=== PATIENT | male | born 1985 | race Caucasian/White ===

== ENCOUNTER 2022-10-08 08:01 | Outpatient (CLI) | payer BC, SELFPAY ==
--- NOTE | ~2022-10-08 | MR_ITS ---
EXAMINATION: MR lumbar spine wo con DATE: 10/08/2022 08:24 INDICATION: Low back pain TECHNIQUE: Magnetic resonance imaging (MRI) of the lumbar spine was performed without intravenous con trast. Sequences included sagittal T2-weighted FSE, sagittal T2-weighted FS FSE, sagittal T1-weighted FSE, and axial T2-weighted FSE. COMPARISON: None FINDINGS: 1 mm retrolisthesis L5 on S1. Alignment is otherwise normal. Vertebral body heights are normal. Norm al marrow signal. Mild disc height loss at T11-T12 and with associated annular fissures at L3-L4, L4- L5 and L5-S1. The conus medullaris terminates at L2. There is normal signal in the caudal spinal cord . Paravertebral soft tissues are unremarkable. The following disc levels are specifically discussed: T12-L1: The disc does not extend beyond the endplate margin. There is mild bilateral facet joint oste oarthritis. There is no neural foraminal stenosis. There is no central canal stenosis. L1-L2: Disc is mildly bulging. There is mild bilateral facet joint osteoarthritis. There is no neural foraminal stenosis. There is minimal central canal stenosis. L2-L3: The disc does not extend beyond the endplate margin. There is minimal bilateral facet joint os teoarthritis. There is no neural foraminal stenosis. There is no central canal stenosis. L3-L4: Disc is bulging with annular fissure and small central disc extrusion with disc material exten ding up to 4 mm caudal to the level of the superior endplate of L4. There is minimal bilateral facet joint osteoarthritis. There is mild to moderate bilateral neural foraminal stenosis. There is mild ce ntral canal stenosis. L4-L5: Disc is bulging with similar annular fissure and small central disc extrusion with disc materi al extending up to 4 mm caudal to the level of the superior endplate of L5. There is mild bilateral f acet joint osteoarthritis. There is mild to moderate bilateral neural foraminal stenosis. There is mi ld central canal stenosis along with mild narrowing of the left and right lateral recesses. L5-S1: Annular fissure and small left paracentral disc extrusion with disc extrusion extending 2 mm c audal to the level of the superior endplate of S1. There is mild bilateral facet joint osteoarthritis . There is mild right and mild to moderate left neural foraminal stenosis. There is no central canal stenosis. There is mild narrowing of the left lateral recess. IMPRESSION: 1. Mild lumbar spondylosis. Reviewed, dictated and finalized at location A. [employer] ORTHOTIC FITTER IMPRESSION: 1. Mild lumbar spondylosis.
== END 2022-10-08 08:02 ==
DX: M47.26 Other spondylosis with radiculopathy, lumbar region (principal)
CPT/HCPCS: 72148

== ENCOUNTER 2024-02-07 14:07 | Outpatient (CLI) | payer BC, SELFPAY ==
--- NOTE | ~2024-02-07 | MR_ITS ---
EXAMINATION: MR shoulder RT wo/w con DATE: 02/07/2024 15:08 INDICATION: Right shoulder pain. TECHNIQUE: Magnetic resonance imaging (MRI) of the right shoulder was performed without and with 20 m L MultiHance intravenous contrast. COMPARISON: None. FINDINGS: Coracoacromial arch: The acromion undersurface is curved in morphology (type II). There is mild acromioclavicular joint os teoarthritis. There is mild subacromial/subdeltoid bursitis. Rotator cuff: There is mild supraspinatus tendinopathy and mild infraspinatus tendinopathy. Teres minor tendon is n ormal. There is severe subscapularis tendinopathy. There is a full-thickness tear of superior subscap ularis tendon at its distal attachment measuring 2 mm proximal to distal. There is no asymmetric fatt y atrophy of the rotator cuff muscle bellies. Biceps tendon and glenoid labrum: Biceps tendon is in bicipital groove. Intra-articular biceps tendon is normal. The glenoid labrum is normal. Fluid: There is a small glenohumeral joint effusion. Bones/cartilage: Glenoid cartilage is normal. Humeral head cartilage is normal. IMPRESSION: 1. Full-thickness tear of subscapularis tendon superiorly at its distal attachment. 2. Mild acromioclavicular joint osteoarthritis. 3. Small glenohumeral joint effusion. 4. Mild subacromial/subdeltoid bursitis. Reviewed, dictated and finalized at location A. IMPRESSION: 1. Full-thickness tear of subscapularis tendon superiorly at its distal attachm ent. 2. Mild acromioclavicular joint osteoarthritis. 3. Small glenohumeral joint effusion. 4. Mild subacromial/subdeltoid bursitis.
== END 2024-02-07 14:08 ==
LOC: MICIMG 14:09
PROVIDERS: PCP Family Medicine
DX: M19.011 Primary osteoarthritis, right shoulder (principal); M25.411 Effusion, right shoulder; M75.51 Bursitis of right shoulder
CPT/HCPCS: 73223; A9577

== ENCOUNTER 2024-08-02 08:26 | Emergency (ER) | payer BC, SELFPAY ==
[2024-08-02 08:27] VITALS: BP 156/76; PULSE 91; RESP 16; TEMP 36.8; O2SAT 98
== END 2024-08-02 12:19 | disposition left against medical advice (07) ==
LOC: ANHED 12:01
PROVIDERS: PCP Family Medicine
DX: R09.89 Other specified symptoms and signs involving the circulatory and respiratory systems (principal)
CPT/HCPCS: 99199

== ENCOUNTER 2025-04-09 14:00 | Emergency (ER) | payer BC, SELFPAY ==
--- NOTE | ~2025-04-09 | CT_ITS ---
EXAMINATION: CT abdomen pelvis w con DATE: 04/09/2025 16:12 INDICATION: RUQ pain TECHNIQUE: Computed tomography (CT) of the abdomen and pelvis was performed with 100 mL Omnipaque-350 intravenous contrast. Automated exposure control and iterative reconstruction technique were employe d. The dose-length product was 831.75 mGy-cm. COMPARISON: Ultrasound abdomen, same date. FINDINGS: Lower thorax: Unremarkable Liver: Enlarged. Biliary/Gallbladder: Gallbladder is normal. No bile duct dilation. Pancreas: No mass or duct dilation. Spleen: Normal. Adrenals:No mass. Kidneys: Simple exophytic left renal cyst. 1.6 cm indeterminate density right upper pole lesion. No o bstructing calcification or hydronephrosis. GI tract: Mild distal esophageal and antral wall edema. No small or large bowel dilation. Normal appe ndix. Mesentery/Peritoneum: No ascites, mass, or free air. Retroperitoneum: No mass. Pelvis: Pelvic organs are within normal limits. Soft Tissues: Small uncomplicated fat-containing inguinal and bilateral inguinal hernias. Bones: No acute osseous finding. IMPRESSION: Mild esophagitis and antral gastritis. Hepatomegaly. 1.6 cm indeterminate density right upper pole renal lesion, recommend comparison to outside studies i f available. Otherwise, recommend nonemergent but timely CT or MRI of the kidneys to further evaluati on. Reviewed, dictated and finalized at location K. IMPRESSION: Mild esophagitis and antral gastritis. Hepatomegaly. 1.6 cm indeterminate density right upper pole renal lesion, recommend compariso n to outside studies if available. Otherwise, recommend nonemergent but timely CT or MRI of the kidneys to further evaluation.
--- NOTE | ~2025-04-09 | US_ITS ---
US abdomen limited INDICATION: Right upper quadrant pain PROCEDURE: Realtime right upper abdominal ultrasound. COMPARISON: No prior studies for comparison. FINDINGS: The pancreas is normal without focal mass or pancreatic ductal dilation. Liver echotexture is normal without focal mass or intrahepatic biliary dilatation. There is normal directional flow i n the portal vein. The gallbladder is normal without stones, gallbladder wall thickening or pericholecystic fluid. Comm on bile duct measures 4 mm. No sonographic Burgos's sign. IMPRESSION: 1: Normal limited abdominal ultrasound. Reviewed, dictated and finalized at location A.
[2025-04-09 14:01] VITALS: BP 139/92; PULSE 94; RESP 16; TEMP 36.6; O2SAT 100
--- OUTSIDE RECORDS SUMMARY | 2025-04-09 14:01 | XMS_ITS | Clinical Summary ---
Author Organization [facility] [employer] Address [address] [place] [address] Care Team Providers Care Instructional Support Services Director Name Role Phone Unavailable Primary Care Provider Unavailabl e Source Comments [facility] [employer],non-owned Affiliates and Associated Physician Practices is amultiple site organization consisting of ambulatory clinics and hospital sitesin [place], [place], [place] and [place]. This disclosure is being madepursuant to the Care Everywhere program and may not contain all information available regarding this patient. Last updated 18.[facility] [employer] Allergies No known active allergies Medications * Be aware that medications may not be up to date on this document. Alwaysverify current medications with the patient. ondansetron (ZOFRAN) 4 MG tablet Take 1 (one) tablet by mouth every 6 hours as needed for Nausea/Vomi ting 10 tablet 03/22/2021 Active Active Problems No known active problems Social History Tobacco Use Types Packs/Day Years Used Date Smoking Tobacco: Never Smokeless Tobacco: Never PHQ-2 Answer Date Recorded PHQ2 TOTAL SCORE 0 05/31/2021 Sex and Gender Information Value Date Recorded Sex Assigned at Not on file Legal Sex Male 12:44 PM CDT Gender Identity Not on file Sexual Orientation Not on file Last Filed Vital Signs Vital Sign Reading Time Taken Comments Blood Pressure 120/72 05/31/2021 10:27 AM CDT Pulse 73 05/31/2021 10:27 AM CDT Temperature 36.7 C (98 F) 05/31/2021 10:27 AM CDT Respiratory Rate 12 05/31/2021 10:27 AM CDT Oxygen Saturation 96% 05/31/2021 10:27 AM CDT Inhaled Oxygen Concentration - - Weight 102.1 kg (225 lb) 05/31/2021 10:27 AM CDT Height 182.9 cm (6') 05/31/2021 10:27 AM CDT Body Mass Index 30.52 05/31/2021 10:27 AM CDT Plan of Treatment Health Maintenance Due Date Last Done Comments LIPID TESTING 1984 HIV SCREENING 1999 HEPATITIS C SCREENING 05/18/2002 DTAP/TDAP/TD VACCINES (1 - Tdap) 2003 HEPATITIS B VACCINE (1 of 3 - 19+ 3-dose series) 2003 COVID-19 VACCINE ( - 2023-2 5 season) 2024 DEPRESSION SCREENING 11/04/2024 INFLUENZA VACCINE (Season Ended) 2025 09/07/20 06 ZOSTER VACCINE (1 of 2) 2034 HIB VACCINE Aged Out No longer eligi ble based on patient's age to complete this topic HPV VACCINE Aged Out No longer eligi ble based on patient's age to complete this topic MENINGOCOCCAL (Group B) VACC INE SHARED DECISION-MAKING Aged Out No longer eligibl e based on patient's age to complete this topic MENINGOCOCCAL GROUPS A/C/Y/W VACCINE Aged Out No longer eligible b ased on patient's age to complete this topic PNEUMOCOCCAL VACCINE Aged Out No long er eligible based on patient's age to complete this topic Insurance ANTHEM ANTHEM
--- OUTSIDE RECORDS SUMMARY | 2025-04-09 14:01 | XMS_ITS | Patient Health Record ---
Author Organization [facility] Address [facility] [address] [address] Care Team Providers Care Animation Producer Name Role Phone Oneil Romero Primary Care Provider Marino Leon Unavailable [phone] ALLERGIES No Known Allergies RESULTS Component Value Reference Range Notes X ray : Cervical Spine 7 vie ws, AP, Lateral, Swimmers, Obliques, Flexion and Extension Reviewed date:11/02/2024 07:44:07 AM Interpretation:850 Performing Lab: Notes/Report: 850 X ray : Lumbar spine 5 views , AP, Lateral, Spot, Flexion and Extension Reviewed date:11/02/2024 07:44:21 AM Interpretation:850 Performing Lab: Notes/Report: 850 REASON FOR REFERRAL Reason DIAGNOSES: neck pain , HNP, carpal tunnel [place], back pain, spinal stenosis 3 times per week for 3 weeks eval and treat, exercise, modalities per therapist's discretion; HEP Referral Organization [facility] Referring Provider First Name Marino Referring Provider Last Name Dianna Referring Provider Speciality Orthopedic Surgery Referred Provider Specialty Physical The rapy Referral Priority Routine MEDICATIONS Medication SIG (Take, Route, Fr equency, Duration) Notes Start Date End Date Status Naproxen 500 MG 1 tablet with food o r milk as needed Orally every 12 hrs for 90 days 10/30/2024 Active PROBLEMS Problem Type ICD Code Onset Dates Problem Status W/U Status Risk SNOMED Code Notes Problem Carpal tunnel syndrome, bilateral upper limbs (G56.03) Active confirmed Carpal tunnel syndrome (69794059) Problem Carpal tunnel syndrome of right wrist (G56.01) Active confirmed Carpal tunnel syndrome of right wrist ([id number]) Problem Carpal tunnel syndrome, left (G56.02) Active confirmed Carpal tunnel syndrome (99177944) Problem HNP (herniated nucleus pulposus), lumbar (M51.26) Active confirmed Displacement of lumbar intervertebral disc without myelopathy ([id number]) VITAL SIGNS Height 72 in 10/30/2024 Weight 245 lbs 10/30/2024 BMI 33.22 kg/m2 10/30/2024 PROCEDURES Procedure Date Ordered Date Performed Result Body Sit e [facility] Wrist Long 10/30/2024 10/30/2024 bcbs ins Encounters Encounter Location Date Provider Diagnosis [facility] [address] [place] [address] 10/30/2024 Marino Bustamante Carpal tunnel syndro me of right wrist G56.01 and Carpal tunnel syndrome, left G56.02 [facility] [address] [place] [address] 10/30/2024 Marino Bustamante Carpal tunnel syndrome, bilateral upper limbs G56.03 ; Cervical pain M54.2 ; Cervical radiculopathy M54.12 ; Cervical spinal stenosis M48.02 ; Other low back pain M54.59 ; HNP (herniated nucleus pulposus), lumbar M51.26 and Spinal stenosis of lumbar region without neurogenic claudication M48.061 ASSESSMENTS Encounter Date Diagnosis Assessment Notes Treatment Notes Treatment Clinical Notes Section Notes 10/30/2024 Carpal tunnel syndrome of right wrist (ICD-10 - G56.01) 10/30/2024 Carpal tunnel syndrome, bilateral upper limbs (ICD-10 - G56.03) <b>IMPRESSION:</b > Neck pain. Cervical radiculopathy. Stenosis. Carpal tunnel disease. Back pain. Stenosis. HNP. <b>PLAN:</b> The patient's complaints presently do not appear to be radicular. His physical examination does not support the contention he has an active radiculopathy with disc pathology in the cervical or lumbar spine. It would be my recommendation he continue on a course of conservative measures with use of naproxen 500 mg b.i.d., physical therapy focusing on reducing neck and back complaints, improving core strength. He will use cockup splints bilaterally to address carpal tunnel disease. We will see him back in the office in another 4 to 6 weeks. GLENYS/cp 10/30/2024 Cervical pain (ICD-10 - M54.2) <b>IMPRESSION:</b > Neck pain. Cervical radiculopathy. Stenosis. Carpal tunnel disease. Back pain. Stenosis. HNP. <b>PLAN:</b> The patient's complaints presently do not appear to be radicular. His physical examination does not support the contention he has an active radiculopathy with disc pathology in the cervical or lumbar spine. It would be my recommendation he continue on a course of conservative measures with use of naproxen 500 mg b.i.d., physical therapy focusing on reducing neck and back complaints, improving core strength. He will use cockup splints bilaterally to address carpal tunnel disease. We will see him back in the office in another 4 to 6 weeks. INTERMEDIATE/cp 10/30/2024 Carpal tunnel syndrome, left (ICD-10 - G56.02) 10/30/2024 Cervical radiculopathy (ICD-10 - M54.12) <b>IMPRESSION:</b > Neck pain. Cervical radiculopathy. Stenosis. Carpal tunnel disease. Back pain. Stenosis. HNP. <b>PLAN:</b> The patient's complaints presently do not appear to be radicular. His physical examination does not support the contention he has an active radiculopathy with disc pathology in the cervical or lumbar spine. It would be my recommendation he continue on a course of conservative measures with use of naproxen 500 mg b.i.d., physical therapy focusing on reducing neck and back complaints, improving core strength. He will use cockup splints bilaterally to address carpal tunnel disease. We will see him back in the office in another 4 to 6 weeks. INTERMEDIATE/cp 10/30/2024 Cervical spinal stenosis (ICD-10 - M48.02) <b>IMPRESSION:</b > Neck pain. Cervical radiculopathy. Stenosis. Carpal tunnel disease. Back pain. Stenosis. HNP. <b>PLAN:</b> The patient's complaints presently do not appear to be radicular. His physical examination does not support the contention he has an active radiculopathy with disc pathology in the cervical or lumbar spine. It would be my recommendation he continue on a course of conservative measures with use of naproxen 500 mg b.i.d., physical therapy focusing on reducing neck and back complaints, improving core strength. He will use cockup splints bilaterally to address carpal tunnel disease. We will see him back in the office in another 4 to 6 weeks. INTERMEDIATE/cp 10/30/2024 Other low back pain (ICD-10 - M54.59) <b>IMPRESSION:</b > Neck pain. Cervical radiculopathy. Stenosis. Carpal tunnel disease. Back pain. Stenosis. HNP. <b>PLAN:</b> The patient's complaints presently do not appear to be radicular. His physical examination does not support the contention he has an active radiculopathy with disc pathology in the cervical or lumbar spine. It would be my recommendation he continue on a course of conservative measures with use of naproxen 500 mg b.i.d., physical therapy focusing on reducing neck and back complaints, improving core strength. He will use cockup splints bilaterally to address carpal tunnel disease. We will see him back in the office in another 4 to 6 weeks. INTERMEDIATE/cp 10/30/2024 HNP (herniated nucleus pulposus), lumbar (ICD-10 - M51.26) <b>IMPRESSION:</b > Neck pain. Cervical radiculopathy. Stenosis. Carpal tunnel disease. Back pain. Stenosis. HNP. <b>PLAN:</b> The patient's complaints presently do not appear to be radicular. His physical examination does not support the contention he has an active radiculopathy with disc pathology in the cervical or lumbar spine. It would be my recommendation he continue on a course of conservative measures with use of naproxen 500 mg b.i.d., physical therapy focusing on reducing neck and back complaints, improving core strength. He will use cockup splints bilaterally to address carpal tunnel disease. We will see him back in the office in another 4 to 6 weeks. INTERMEDIATE/cp 10/30/2024 Spinal stenosis of lumbar region without neurogenic claudication (ICD-10 - M48.061) <b>IMPRESSION:</b > Neck pain. Cervical radiculopathy. Stenosis. Carpal tunnel disease. Back pain. Stenosis. HNP. <b>PLAN:</b> The patient's complaints presently do not appear to be radicular. His physical examination does not support the contention he has an active radiculopathy with disc pathology in the cervical or lumbar spine. It would be my recommendation he continue on a course of conservative measures with use of naproxen 500 mg b.i.d., physical therapy focusing on reducing neck and back complaints, improving core strength. He will use cockup splints bilaterally to address carpal tunnel disease. We will see him back in the office in another 4 to 6 weeks. INTERMEDIATE/cp PLAN OF TREATMENT No Information Insurance Providers Payer Name Payer Address Payer Phone Subscriber Number Group Number Insured Name Patient Relationship to Insured Coverage Start Date [facility]age End Date [facility] [address] [place] [address] [id number] Noé Roy Self - patient is the insured MEDICAL (GENERAL) HISTORY Medical History History ICD Code Neck pain Back pain Numbness in hands/feet Disc bulging Denies h/o emotional/psychiatric disorde r Denies h/o drug/chemical dependency Surgical History Surgery Date(Month/Year) Left ulnar nerve 06/2015 Subscapularis 03/2024
--- OUTSIDE RECORDS SUMMARY | 2025-04-09 14:01 | XMS_ITS ---
Author Organization [facility] Address [address] [facility] [address] [place] [address] Care Team Providers Care Financial Underwriter Name Role Phone Oneil Romero Primary Care Provider Marino Leon [facility] [phone] PROBLEMS Problem Type ICD Code Onset Dates Problem Status W/U Status Risk SNOMED Code Notes Problem Carpal tunnel syndrome of right wrist (G56.01) Active confirmed Carpal tunnel syndrome of right wrist ([id number]) Problem Carpal tunnel syndrome, left (G56.02) Active confirmed Encounters Encounter Location Date Provider Diagnosis [facility] ONLY [facility] [address] [facility] [address] [place] [address] 10/30/2024 Marino Bustamante Carpal tunnel syndrome of right wrist G56.01 and Carpal tunnel syndrome, left G56.02 ASSESSMENTS Encounter Date Diagnosis Assessment Notes Treatment Notes Treatment Clinical Notes Section Notes 10/30/2024 Carpal tunnel syndrome of right wrist (ICD-10 - G56.01) 10/30/2024 Carpal tunnel syndrome, left (ICD-10 - G56.02) PLAN OF TREATMENT No Information
--- OUTSIDE RECORDS SUMMARY | 2025-04-09 14:01 | XMS_ITS ---
Author Organization [facility], TRAVIS Address [facility] [facility] [address] [place] [address] Care Team Providers Care Vegetable Cutter Name Role Phone Oneil Romero Primary Care Provider Marino Leon Unavailable [phone] ALLERGIES No Known Allergies RESULTS Component Value [...] Specialty Physical The rapy Referral Priority Routine REASON FOR VISIT Cervical and Lumbar MEDICATIONS Medication SIG (Take, Route, Fr equency, Duration) Notes Start Date End Date Status Naproxen 500 MG 1 tablet with food o r milk as needed Orally every 12 hrs for 90 days 10/30/2024 Active PROBLEMS Problem Type ICD Code Onset Dates Problem Status W/U Status Risk SNOMED Code Notes Problem Carpal tunnel syndrome, bilateral upper limbs (G56.03) Active confirmed Carpal tunnel syndrome (89538381) Problem HNP (herniated nucleus pulposus), lumbar (M51.26) Active confirmed VITAL SIGNS BMI 33.22 kg/m2 10/30/2024 Height 72 in 10/30/2024 Weight 245 lbs 10/30/2024 PROCEDURES Procedure Date Ordered Date Performed Result Body Sit e [facility] Wrist Long 10/30/2024 10/30/2024 bcbs ins Encounters Encounter Location Date Provider Diagnosis [facility], [address] [place] [address] 10/30/2024 Marino Bustamante Carpal tunnel syndrome, bilateral upper limbs G56.03 ; Cervical pain M54.2 ; Cervical radiculopathy M54.12 ; Cervical spinal stenosis M48.02 ; Other low back pain M54.59 ; HNP (herniated nucleus pulposus), lumbar M51.26 and Spinal stenosis of lumbar region without neurogenic claudication M48.061 ASSESSMENTS Encounter Date Diagnosis Assessment Notes Treatment Notes Treatment Clinical Notes Section Notes 10/30/2024 Carpal tunnel syndrome, bilateral upper limbs [...] office in another 4 to 6 weeks. LONG TERM/cp 10/30/2024 Cervical pain (ICD-10 - M54.2) <b>IMPRESSION:</b [...] office in another 4 to 6 weeks. LONG TERM/cp 10/30/2024 Cervical radiculopathy (ICD-10 - M54.12) <b>IMPRESSION:</b [...] office in another 4 to 6 weeks. LONG TERM/cp 10/30/2024 Cervical spinal stenosis (ICD-10 - M48.02) [...] office in another 4 to 6 weeks. LONG TERM/cp 10/30/2024 Other low back pain (ICD-10 - [...] office in another 4 to 6 weeks. LONG TERM/cp 10/30/2024 HNP (herniated nucleus pulposus), lumbar (ICD-10 [...] office in another 4 to 6 weeks. LONG TERM/cp 10/30/2024 Spinal stenosis of lumbar region without [...] office in another 4 to 6 weeks. LONG TERM/cp PLAN OF TREATMENT Medication Medication Name Sig Start Date Stop Date Notes Naproxen 500 MG 1 tablet with food o r milk as needed Orally every 12 hrs for 90 days 10/30/2024 Meloxicam Referrals Referral Date Details DIAGNOSES: neck pain , HNP, carpal tunnel pasquale, back pain, spinal stenosis 3 times per week for 3 weeks eval and treat, exercise, modalities per therapist's discretion; HEP Progress Notes * Examination Category Sub-Category Detail Notes Category Not es General Examination GENERAL: Patient is a n alert and cooperative male who moves about the room without difficulty. He appears to be in no distress. He does not use an assist device to ambulate NECK: Exam reveals no tend erness to palpation. No spasm. There is mild tension. ROM of the cervical spine is reduced in all directions by 20%. Spurling's test negative HEART: Regular rate and rhy thm LUNGS: Clear to auscultatio n in all catherine ABDOMEN: No tenderness to pal pation, bowel sounds present all four quadrants NEUROLOGIC: Upper extremity neur ologic examination reveals positive Tinel's involving the bilateral wrists, but not at the elbows. Symmetric DTR's, intact sensation, 5+/5+ motor strength. Toney's sign negative. Lower extremity neurologic examination reveals symmetric DTR's, intact sensation, 5+/5+ motor strength. SLR testing negative. No clonus, negative Babinski's sign involving the lower extremities SKIN: No evidence of skin rashes or dermal lesions MUSCULOSKELETAL: Thoracic exam reveal s no tenderness to palpation. No spasm. No deformity. Lumbar exam reveals no tenderness to palpation. No spasm. No scar. There is tension. ROM of the lumbar spine reveals forward flexion to 100 degrees, extension to 35 to 40 degrees, side-bending to 50 degrees. He can heel and toe stand PSYCHIATRIC: Mood and affect appe ar normal HEENT: No masses, PERRLA, E OM intact, no nasal drainage, no lymphadenopathy JOINTS: Hip log roll testing negative. Hip ROM full. FABERE test negative HEMATOLOGIC: No evidence of exces sive bruising or bleeding MRI Imaging Studies CERVICAL SPINE MRI: MRI stud y through the cervical spine performed on 08/04/2024 reveals evidence of neural foraminal narrowing at C4-5 bilaterally. Moderate neural foraminal narrowing at C5-6 bilaterally associated with disc spur complexes. C6-7 has a left sided disc protrusion, left foraminal stenosis LUMBAR SPINE MRI: MRI study through th e lumbar spine performed on 08/04/2024 reveals evidence of disc desiccation and degeneration L3-4, L4-5 and L5-S1. Disc bulging at L3-4 and a high intensity zone resulting in minimal encroachment within the spinal canal, thecal sac measures 1.15 x 1.52 cm. L4-5 has a central disc bulge, herniation with facet and ligamentum flavum hypertrophy resulting in mild canal narrowing, thecal sac measures 1.22 x 1.48 cm. L5-S1 has a left sided disc protrusion Plain X-ray Imaging Studies CERVICAL SPINE X-RAY S: Seven view x-rays through the cervical spine reveal evidence of mild degeneration. Diminished disc space height through the cervical spine from C3 to T1 with facet degeneration all levels. Mild foraminal narrowing at C6-7 bilaterally. No fracture LUMBAR SPINE X-RAYS: Five view x-rays th rough the lumbar spine reveal evidence of facet degeneration L3 to S1. Mild diminished disc space height at L5-S1. Flexion/extension films reveal no evidence of instability History and Physical Notes * HPI (History of Present Illness) Category Sub-Category Detail Notes Category Not es ------ Noé Roy is a 39-year-old male who presents for evaluation today, 10/30/2024. He presents with complaints of moderate, sharp, burning back pain, which has been present for the last 6 years. He reports he experiences tingling and numbness in the legs and feet. He complains of bilateral buttock pain. He reports prior treatment in the past has included two prior epidural steroid injections by Dr. Delgado. The first epidural steroid injection was L3-4 and offered no help. The second epidural steroid injection was in his neck to help moderate his neck and arm complaints. He has also been under the care of Dr. Rosita Villagomez for treatment in the past. The last injection to the lumbar spine was performed in 2021 at the L4-5, which did seem to help moderate complaints for about a year. The injection was performed in [place], [place]. The patient complains of multiple musculoskeletal complaints to include neck pain radiating into the right shoulder. He complains of numbness and tingling involving both arms, not just the right. He complains of paresthesias and numbness involving both hands. He complains of lower lumbar back pain, which is localized to the mid portion of the lower buttock region with paresthesias involving the bilateral legs. He has not attended any physical therapy. He does see a chiropractor when complaints are elevated. He is presently using meloxicam daily to help moderate his complaints. He denies any loss of bowel or bladder function Consultation Request Notes Referral Date Referring Provider Referred Provider Not es 10/30/2024 Marino Bustamante , DIAGNOSES: n brandi pain, HNP, carpal tunnel pasquale, back pain, spinal stenosis 3 times per week for 3 weeks eval and treat, exercise, modalities per therapist's discretion; HEP
--- OUTSIDE RECORDS SUMMARY | 2025-04-09 14:01 | XMS_ITS | Continuity of Care Document ---
Author Organization [facility] Address [address] [place] [address] Phone Care Team Providers Care Dish Stacker Name Role Phone Paige ANDINOShiv Unavailable Unavailab le Allergies, Adverse Reactions, Alerts Substance Reaction Status Criticality No Known Allergies Active No Inform ation Medications Medication Instructions Dosage Effective Dates (start - stop) Status Comments ibuprofen 800 mg tablet take 1 tablet by oral route 3 times every day with food 800 MG - Active fluticasone propionate 50 mcg/actuation nasal spray,suspension INSTILL 1-2 SPRAYS PER NOSTRIL DAILY - Active cetirizine 10 mg tablet TAKE 1 TABLET BY MOUTH EVERY DAY AT NIGHT - Active Celebrex 200 mg capsule take 1 capsule by oral route every day 200 MG - No Longer Active Procedures Procedure Date Supplemental Report Office/outpatient visit,est, mod 2024 Asp/inject major joint or bursa w/o US g uidance Celestone Betamethasone Sod Phos-Acetate Global/Postop followup visit Supplemental Report Global/Postop followup visit Supplemental Report Supplemental Report Global/Postop followup visit [facility] Global/Postop followup visit Supplemental Report BMI Documented Above Normal Limit F/U Pl an Doc X-ray exam shoulder complete, minimum 2 views Office/outpatient visit,berna bowser 2024 Advance Directives Directive Yes / No Effective Date File Name No Information Encounters Encounter Description Practice Location Reason(s) For Visit Diagnoses Date Provider Providers Copied on Encounter Office/outpat ient visit,est, mod [facility], [address], [id number], [place] tel:[phone] Right shoulder and upper arm pain (chief complaint) Pain in right shoulder 5 Paige DO Chaney. [address] [address], [place], [place], [id number] , [place]. tel: [phone], [address], [id number], [place] tel:[phone] Right shoulder pain (chief complaint) Encounter for other orthopedic aftercare Feb-2 5 Paige DO Shiv. [address] [address], [place], [place], [id number] , [place]. tel: [phone] [facility], [address], [id number], [place] tel:[phone] Right shoulder pain (chief complaint) Encounter for other orthopedic aftercare Jan-3 - 5 Paige DO Shiv. [address] [facility], [address], [id number] , [place]. tel: [phone] [facility], [address], [id number], [place] tel:[phone] [facility] Right shoulder pain (chief complaint) Encounter for other orthopedic aftercare Jan-0 5 Paige DO Shiv. [address] [facility], [address], [id number] , [place]. tel: [phone] [facility], [address] [address], [place], [place], [id number], [place] tel:[phone] [facility] Pain in right shoulder 5 Paige DO Chaney. [address] [facility], [facility] [address], [place], [place], [id number] , [place]. tel:[phone] [facility], [address] [facility] [address], [place], [place], [id number], [place] tel:[phone] [facility] Soreness (chief complaint) Encounter for other orthopedic aftercare 5 Paige DO Chaney. [address] [facility], [address] [address], [place], [place], [id number] , [place]. tel:[phone] [facility], [address] [address], [place], [place], [id number], [place] tel:[phone] [facility] Pain in right shoulder 5 Paige DO Reddyew. [address] [facility], [facility], [place], [place], [id number] , [place]. tel: [phone] Office/outpat ient visit,new, [facility], [address] [address], [place], [place], [id number], [place] tel:[phone] [facility] Right shoulder pain and right bicep pain (chief complaint) Pain in right shoulder 5 Paige DO Chaney. [address] [facility], [facility], [place], [place], [id number] , [place]. tel:[phone] [facility], [address] [facility] [address], [place], [place], [id number], [place] tel:[phone] [facility] No Information 5 Paige DO Chaney. [address] [facility], [facility], [place], [place], [id number] , [place]. tel:[phone] Family History Family Member Type Diagnosis Age At Onset Sister Problem (finding) Cancer, unknown Father Problem (finding) Heart Disease Payers Payer name Insurance type Covered democrat ID Emre carrillo(s) Melquiades [employer] [id number] Social History Type Description Quantity Date Captured Comments Alcohol Use Details Unknown Caffeine Use Details Unknown Tobacco Use Status No Information Smoking Status No Information Non-Smoking Tobacco Use Details : No Details Available : No Details Available Sex Male Gender Identity Male Vital Signs Date / Time: Height Weight BMI Pulse Rate Blood Pressure Temperature Respiratory Rate Body Surface Area Head Circumference Head Circ. Percentile Wt./Ramon. Percentile BMI percentile Pulse Ox Inhaled Ox 10:34 AM 73.00 in 110.223 kg (243.00 lbs) 32.0 6 kg/m eter (2) Chief Complaint And Reason For Visit From encounter dated '03/22/2025 10:30'. Right shoulder and upper arm pain (chief complaint) Reason For Referral Reason For Referral No Information Plan Of Treatment Date Type Action Status Referral Ordered: X-ray exam shoulder complete, minimum 2 views RT ordered Appointment Noé Roy BOOKED History Of Present Illness Encounter Date Complaint History Of Prese nt Illness Right shoulder and upper arm carrington n Right shoulder pain Right shoulder pain Right shoulder pain Soreness Right shoulder pain and right bi cep pain Functional Status Date Functional Assessmen t No Information Instructions Date Instruction Additional Infor mation No Information Assessments Type Assessment Date No Information Patient Care Teams Name Effective Dates (start - stop) Status Members No Information
--- OUTSIDE RECORDS SUMMARY | 2025-04-09 14:01 | XMS_ITS | CONTINUITY OF CARE DOCUMENT ---
Author Name marcos rodríguez Address Unknown Organization [facility] Address [address] [place] [address] Phone [phone] Care Team Providers Care Fringe Weaver Name Role Phone Rob Moncada MD Unavailable [phone] KELY VORA MD Unavailable [phone] KELY VORA MD Unavailable PROBLEMS Condition Status Date Provider Notes ABNORMAL ELECTROCARDIOGRAM active Rob lockhart MD PALPITATIONS active Rob Moncada MD ENCOUNTERS Date Type Provider Location Encounter Diag nosis - In-person encounter Office Visit Rob Moncada MD [place] [facility] - In-person encounter Office Visit Rob Moncada MD [facility] ABNORMAL ELECTROCARDIOGRAMPALPITATIONS VITAL SIGNS Date Observation Value Provider Body Mass Index (Ratio) 28.02 kg/m2 Garcia i Aissatou blood pressure, diastolic 75 mm[Hg] Leeroy rri Aissatou blood pressure, systolic 132 mm[Hg] Suly Reyez pulse rate 78 /min Barbara bellamy oxygen saturation, oximetry 98 % Barbara Reyez respiratory rate E&M 16 /min Barbara randhawa weight E&M 203 [lb_av] Barbara bellamy height E&M 71.5 [in_i] Barbara Johnson lder blood pressure, diastolic 70 mm[Hg] Anusha seph Manacop blood pressure, systolic 110 mm[Hg] Conrad eph Manacop Body Mass Index (Ratio) 27.63 kg/m2 Panterabridgett nirmal Prescott blood pressure, diastolic 66 mm[Hg] Azulkandipolo Prescott blood pressure, systolic 114 mm[Hg] Pantera lizandrojonatan Prescott pulse rate 73 /min Lilli Prescott oxygen saturation, oximetry 99 % Panterajonatan Prescott respiratory rate E&M 16 /min Panterajonatan Prescott weight E&M 203 [lb_av] Panterajonatan Prescott height E&M 72 [in_i] Panterajonatan Prescott ALLERGIES No Known Drug Allergies RESULTS Date Observation Value Provider Reference Range Interpretation Location platelet count 217 10*3/uL Gene Louise hematocrit, blood 38.0 % Gene Louise alanine aminotransferase (SGPT), serum 42 1/L Gene Louise aspartate aminotransferase (SGOT), serum 56 1/L Gene Louise creatinine, serum 0.90 mg/dL Gene Louise potassium, serum 4.2 mmol/L Gene Louise sodium, serum 140 mmol/L Gene Louise HISTORY OF MEDICATION USE Medication Status Instructions Dates Provider Indications Com ments PROTONIX 40 MG ORAL PACKET active 1 tab po daily 4 Rob Moncada MD ABNORMAL ELECTROCARDIOGRAM SOCIAL HISTORY Date Observation Value Provider smoking history, tot al pack/year 10 cigs for 2years Barbara Reyez smoking status former smoker Barbara lancaster smoking status never Tomasz Mahendra p social history E&M Marital Statu s: Single L murali with family/friends E thnicity: Rob Moncada MD social history reviewed E&M reviewed Rob Moncada MD seatbelt usage 100 % Panteramary Elsa an exercise type all Lilli Yancey n In the past 3 months , have you been waking up wanting to use drugs? (CAGE substance use question #4) N Panteramary Prescott In the past 3 months , have you felt guilty or bad about using drugs? (CAGE substance use question #3) N Lilli Prescott In the past 3 months , has anyone annoyed you by telling you to cut down or stop using drugs? (CAGE substance use question #2) N Panteramary Prescott In the past 3 months , have you felt you should cut down or stop using drugs?(CAGE substance use question #1) N Lilli Prescott alcohol use, average drinks per day 1 /d Lilli Prescott alcohol use, type beer Lilli currie drug use no Lilli Prescott passive cigarette sm lula exposure yes Lilli Prescott smoking history, tot al pack/year 10 cigs Lilli Prescott smoking, year quit 6months [facility] smoking status former smoker Edvinjonatan Bc garcias physical exercise, frequency, days per week yes [facility] caffeine use, averag e drinks per day no [facility] alcohol use, average drinks per day none [facility] number of years as a smoker less than 10 years [facility] smoking status Quit [facility] FUNCTIONAL STATUS Date Observation Value Provider periodic limb movement index absent (0) Tomasz Manacop MENTAL STATUS Date Observation Value Provider assessment of judgme nt and insight E&M Alert and oriented to time, place and person. Mood and affect are normal. Rob Moncada MD INSURANCE PROVIDERS Payer name Policy type / Coverage type [place] red green party ID [facility] [id number] TREATMENT PLAN Date Name Performer new patient:will mamadou ck an echo and a routine stress test n ot sure if his symptoms could be due to gerd. O rders: C omplete Echo (CPT-75530) S tress Test - Routine (CPT-05350) Rob Moncada MD new patient: O rders: H olter Monitor 24 Hr (CPT-71149) Rob Moncada MD Date Name Holter Monitor 24 Hr Stress Test - Routin e Complete Echo
--- OUTSIDE RECORDS SUMMARY | 2025-04-09 14:34 | XMS_ITS | Continuity of Care Document ---
Author Organization [facility] Address [address] [place] [address] Phone Care Team Providers Care Line Service Technician Name Role Phone Paige ANDINOShiv Unavailable Unavailab [...] Encounter Office/outpat ient visit,est, mod [facility], [address], [id number], [place] tel:[phone] Right shoulder and upper arm pain (chief complaint) Pain in right shoulder 5 Paige DO Chaney. [address] [address], [place], [place], [id number] , [place]. tel: [phone], [address], [id number], [place] tel:[phone] [employer] Right shoulder pain (chief complaint) Encounter for other orthopedic aftercare Feb-2 5 Paige DO Shiv. [address] [address], [place], [place], [id number] , [place]. tel: [phone] [facility], [address], [id number], [place] tel:[phone] Right shoulder pain (chief complaint) Encounter for other orthopedic aftercare Jan-3 - 5 Paige DO Shiv. [address] [facility], [address], [id number] , [place]. tel: [phone] [facility], [address], [id number], [place] tel:[phone] [facility] Right shoulder pain (chief complaint) Encounter for other orthopedic aftercare Jan-0 5 Paige DO Shiv. [address] [facility], [address], [id number] , [place]. tel: [phone] [facility], [address] [address], [place], [place], [id number], [place] tel:[phone] [facility] Pain in right shoulder 5 Paige DO Chaney. [address] [facility], [facility] [address], [place], [place], [id number] , [place]. tel:[phone] [facility], [address] [facility] [address], [place], [place], [id number], [place] tel:[phone] [facility] Soreness (chief complaint) Encounter for other orthopedic aftercare 5 Paige DO Chaney. [address] [facility], [address] [address], [place], [place], [id number] , [place]. tel:[phone] [facility], [address] [address], [place], [place], [id number], [place] tel:[phone] [facility] Pain in right shoulder 5 Paige DO Reddyew. [address] [facility], [facility] [address], [place], [place], [id number] , [place]. tel: [phone] Office/outpat ient visit,new, [facility], [address] [address], [place], [place], [id number], [place] tel:[phone] [facility] Right shoulder pain and right bicep pain (chief complaint) Pain in right shoulder 5 Paige DO Chaney. [address] [facility], [facility] [address], [place], [place], [id number] , [place]. tel:[phone] [facility], [address] [facility] [address], [place], [place], [id number], [place] tel:[phone] [facility] No Information 5 Paige DO Chaney. [address] [facility], [facility] [address], [place], [place], [id number] , [place]. tel:[phone] Family History Family Member Type Diagnosis Age At Onset Sister Problem (finding) Cancer, unknown Father Problem (finding) Heart Disease Payers Payer name Insurance type Covered alliance party ID Emre carrillo(s) Melquiades [employer] [id number] Social History Type Description Quantity Date Captured [...]
--- OUTSIDE RECORDS SUMMARY | 2025-04-09 14:34 | XMS_ITS | CONTINUITY OF CARE DOCUMENT ---
Author Name marcos rodríguez Address Unknown Organization [facility] Address [address] [place] [address] Phone [phone] Care Team Providers Care Lokie Driver Name Role Phone Rob Moncada MD Unavailable KELY VORA MD Unavailable KELY VORA MD Unavailable PROBLEMS Condition Status Date Provider Notes ABNORMAL ELECTROCARDIOGRAM active Rob lockhart MD PALPITATIONS active Rob Moncada MD ENCOUNTERS Date Type Provider Location Encounter Diag nosis - In-person encounter Office Visit Rob Moncada MD [facility] - In-person encounter Office Visit Rob Moncada MD [facility] ABNORMAL ELECTROCARDIOGRAMPALPITATIONS VITAL SIGNS Date Observation [...] cigs Lilli Prescott smoking, year [facility] former smoker Edvinjonatan Bc garcias physical exercise, frequency, days per week yes [facility] caffeine use, averag e drinks per day no [facility] alcohol use, average drinks per day none [facility] number of years as a smoker less than 10 years [facility] smoking status Quit [facility] FUNCTIONAL STATUS Date Observation Value Provider periodic limb movement index absent (0) Tomasz Manacop MENTAL STATUS Date Observation Value Provider assessment of judgme nt and insight E&M Alert and oriented to time, place and person. Mood and affect are normal. Rob Moncada MD INSURANCE PROVIDERS Payer name Policy type / Coverage type Kinney red green party ID [facility] [id number] TREATMENT PLAN Date Name Performer new patient:will mamadou ck an echo and a routine stress test n ot sure if his symptoms could be due to gerd. O rders: C omplete Echo (CPT-60066) S tress Test - Routine (CPT-02599) Rob Moncada MD new patient: O rders: H olter Monitor 24 Hr (CPT-26544) Rob Moncada MD Date Name Holter Monitor 24 Hr Stress Test - Routin e Complete Echo
--- OUTSIDE RECORDS SUMMARY | 2025-04-09 14:34 | XMS_ITS | Clinical Summary ---
Author Organization [facility] Address [address] [place] [address] Care Team Providers Care Brick Catcher Name Role Phone Unavailable Primary Care Provider Unavailabl e Source Comments [facility],non-owned Affiliates and Associated Physician Practices is amultiple site organization consisting of ambulatory clinics and hospital sitesin [place], [place], [place] and [place]. This disclosure is being madepursuant to the Care Everywhere program and may not contain all information available regarding this patient. Last updated 18.[facility] Allergies No known active allergies Medications * [...]
--- NOTE | 2025-04-09 14:40 | ED.GENADULT ---
HPI - General Adult General Chief complaint: Abdominal Pain Stated complaint: RUQ pain Time Seen by Provider: 04/09/25 14:16 History of Present Illness HPI narrative: 39-year-old male presents to the emergency department for evaluation for 2 days of worsening right upper quadrant abdominal pain. Pain is worsened with eating and worsened with bending over. Patient states he did have some issues with constipation but has also had some soft stools and diarrhea. Patient did have some nausea but denies any current nausea or vomiting. Patient has no prior history of gallbladder disease. Patient denies any heavy alcohol consumption. Patient denies any prior history of pancreatitis Related Data Allergies Allergy/AdvReac Type Severity Reaction Status Date / Time No Known Allergies Allergy Unverified 08/02/24 08:26 Review of Systems Review of Systems: All systems reviewed & are unremarkable except as noted in HPI and below Exam Narrative: APPEARANCE: Well appearing, no pain, no distress, well-nourished. HEAD: normocephalic, atraumatic. EYES: PERRLA/EOMI, conjunctivae clear. NOSE: Normal no drainage EARS:TMS clear with good light reflex. THROAT: Pharynx clear, no exudate. NECK: Supple. No adenopathy, no masses. RESPIRATORY: Airway patent, respirations nonlabored. Clear to auscultation bilaterally, no rales, rhonchi, wheezing. CARDIOVASCULAR: Regular rate and rhythm without murmurs rubs or gallops. ABDOMINAL: Right upper quadrant tenderness to palpation, mild epigastric tenderness to palpation MUSCULOSKELETAL: Moves all extremities. Strength/ROM intact, No edema, No calf tenderness. NEURO: Alert. Cranial nerves II through XII intact. Good gait. Good coordination SKIN: Warm, dry. Normal Color Course Vital Signs Vital signs: Vital Signs Temperature 97.8 F 04/09/25 14:01 Pulse Rate 94 04/09/25 14:01 Respiratory Rate 16 04/09/25 14:01 Blood Pressure 139/92 H 04/09/25 14:01 Pulse Oximetry 100 04/09/25 14:01 Oxygen Delivery Room Air 04/09/25 14:01 Temperature 97.8 F 04/09/25 14:01 Pulse Rate 72 04/09/25 16:54 Respiratory Rate 16 04/09/25 16:54 Blood Pressure 147/82 H 04/09/25 16:54 Pulse Oximetry 97 04/09/25 16:54 Oxygen Delivery Room Air 04/09/25 14:01 Medical Decision Making MDM Narrative Medical decision making narrative: 39-year-old male present to the emergency department for evaluation for epigastric and right upper quadrant abdominal pain. Patient is currently afebrile with no leukocytosis hemoglobin of 15.1. Patient has no acute abnormalities on his CMP including normal AST ALT alk-phos and lipase. Urine shows no underlying evidence of infection. Ultrasound was negative for acute cholecystitis. Patient was still having some upper abdominal pain so CT scan was ordered and did show evidence of esophagitis and gastritis. Patient has been taking increased doses NSAIDs due to a regions shoulder surgery. Patient was treated with IV Protonix IV famotidine and a GI cocktail and does feel improved the emergency department. Patient was updated on the results and the plan for treatment for home. Patient will be started on Prilosec for home and patient will be provided follow-up with GI. Differential Diagnosis Differential Diagnosis: Cholecystitis, colitis, diverticulitis, gastritis, appendicitis, gastric ulcer, duodenal ulcer Vital Signs Vital Signs: Vital Signs Temperature 97.8 F 04/09/25 14:01 Pulse Rate 94 04/09/25 14:01 Respiratory Rate 16 04/09/25 14:01 Blood Pressure 139/92 H 04/09/25 14:01 Pulse Oximetry 100 04/09/25 14:01 Oxygen Delivery Room Air 04/09/25 14:01 Temperature 97.8 F 04/09/25 14:01 Pulse Rate 72 04/09/25 16:54 Respiratory Rate 16 04/09/25 16:54 Blood Pressure 147/82 H 04/09/25 16:54 Pulse Oximetry 97 04/09/25 16:54 Oxygen Delivery Room Air 04/09/25 14:01 Lab Data Lab results reviewed: Yes I reviewed the patient's lab results. 04/09/25 14:36 04/09/25 14:36 Labs: Lab Results 04/09/25 04/09/25 Range/Units 14:35 14:36 WBC 8.0 (4.5-10.0) K/mm3 RBC 5.10 (4.6-6.20) M/mm3 Hgb 15.1 (14.0-18.0) g/dL Hct 45.1 (42.0-52.0) % MCV 88.4 (80-100) fl MCH 29.6 (26-34) pg MCHC 33.5 (32-36) g/dl RDW 11.6 (11.5-14.5) % Plt Count 238 (150-375) k/mm3 MPV 9.5 (7.4-10.4) fl Immature Gran % (Auto) 0.1 (0-0.5) % Neut % (Auto) 52.9 (45.5-73.1) % Lymph % (Auto) 37.1 (18.3-44.2) % [place] % (Auto) 8.0 (2.6-8.5) % Eos % (Auto) 1.5 (0-4.4) % Baso % (Auto) 0.4 (0.2-1.2) % Lymph # (Auto) 2.96 (0.9-3.2) K/mm3 [place] # (Auto) 0.6 (0.1-0.6) K/mm3 Eos # (Auto) 0.1 (0-0.3) K/mm3 Baso # (Auto) 0.0 (0.0-0.1) K/mm3 Abs Immat Gran (auto) 0.01 (0.00-0.031) K/mm3 Absolute Neuts (auto) 4.2 (1.3-6.7) K/mm3 Absolute Nucleated RBC 0.000 (0.0-0.012) K/mm3 Nucleated RBC % 0.0 (0.0-0.2) % PT 13.7 (11.1-14.7) Seconds INR 1.0 APTT 29.2 (22.3-36.8) Seconds Sodium 137 (137-145) mmol/L Potassium 4.0 (3.4-5.0) mmol/L Chloride 103 (98-107) mmol/L Carbon Dioxide 26 (22-30) mmol/L Anion Gap 8 (4-12) mmol/L BUN 10 (9-20) mg/dL Creatinine 0.85 (0.7-1.3) mg/dL Estim Creat Clear Calc 133 ml/min Estimated GFR > 60 (59 - ) Glucose 119 H (65-110) mg/dL Lactic Acid 0.9 (0.7-2.0) mmol/L Calcium 9.2 (8.4-10.2) mg/dL Total Bilirubin 0.5 (0.2-1.3) mg/dL AST 42 (17-59) U/L ALT 50 (6-50) U/L Alkaline Phosphatase 59 (38-126) U/L Total Protein 7.9 (6.3-8.2) g/dL Albumin 4.6 (3.5-5.1) g/dL Lipase 85 (23-300) U/L Urine Color Yellow (Yellow) Urine Appearance Clear (Clear) Urine pH 6.0 (5.0-9.0) Ur Specific [place] 1.025 (1.001-1.035) Urine Protein Negative (Negative) mg/dL Urine Glucose (UA) Negative (Negative) mg/dL Urine Ketones Negative (Negative) mg/dL Ur Blood (Man) Negative (Negative) Urine Nitrate Negative (Negative) Urine Bilirubin Negative (Negative) Urine Urobilinogen 0.2 (<2.0) mg/dL Leukocyte Esterase Rfl Negative (Negative) KIARA/UL Imaging Data Radiologist's impression: Impressions Abdomen Ultrasound 04/09/25 15:23 IMPRESSION: 1: Normal limited abdominal ultrasound. Abdomen/Pelvis CT 04/09/25 16:16 IMPRESSION: Mild esophagitis and antral gastritis. Hepatomegaly. 1.6 cm indeterminate density right upper pole renal lesion, recommend comparison to outside studies if available. Otherwise, recommend nonemergent but timely CT or MRI of the kidneys to further evaluation. Discharge Plan Discharge Clinical Impression: Abdominal pain, Esophagitis with gastritis Patient Disposition: Home Condition: Stable Instructions: Antibiotic Form, Diet for Stomach Ulcers and Gastritis (ED), Abdominal Pain (ED), Duodenitis (ED) Additional Instructions: Avoid NSAIDs and avoid alcohol. Prilosec as directed for the next 14 days. Follow the recommended diet. Have close follow-up with GI. If you have any worsening symptoms then please call or return to the emergency department. Patient Language: Liberian Prescriptions: New omeprazole 20 mg capsule,delayed release(DR/EC) 20 mg PO DAILY 14 Days Qty: 14 0RF Follow-up/Referrals: Heather,Oneil Fields MD [Primary Care Provider] - Manny Riley MD [Physician] -
[2025-04-09 14:43] LABS: Basophils Percent Auto 0.4 % (0.2-1.2); Eosinophils Absolute Auto 0.1 K/mm3 (0-0.3); Eosinophils Percent Auto 1.5 % (0-4.4); Hematocrit 45.1 % (42.0-52.0); Hemoglobin 15.1 g/dL (14.0-18.0); Immature Granulocyte Absolute 0.01 K/mm3 (0.00-0.031); Immature Granulocyte Percent A 0.1 % (0-0.5); Lymphocytes Absolute Auto 2.96 K/mm3 (0.9-3.2); Lymphocytes Percent Auto 37.1 % (18.3-44.2); Mean Corpuscular HGB Conc 33.5 g/dl (32-36); Mean Corpuscular Hemoglobin 29.6 pg (26-34); Mean Corpuscular Volume 88.4 fl (80-100); Mean Platelet Volume 9.5 fl (7.4-10.4); Monocytes Absolute Auto 0.6 K/mm3 (0.1-0.6); Neutrophils Absolute Auto 4.2 K/mm3 (1.3-6.7); Neutrophils Percent Auto 52.9 % (45.5-73.1); Platelet Count Result 238 k/mm3 (150-375); Red Cell Distribution Width 11.6 % (11.5-14.5)
[2025-04-09 14:47] LABS: Add Urine Microscopic? NO
[2025-04-09 14:56] LABS: Prothrombin Time 13.7 Seconds (11.1-14.7)
[2025-04-09 14:57] LABS: Partial Thromboplastin Time 29.2 Seconds (22.3-36.8)
[2025-04-09 14:59] LABS: Color Urine Yellow (Yellow)
[2025-04-09 15:00] LABS: Appearance Urine Clear (Clear); Glucose Urine UA Negative (Negative); Ketones Urine Negative (Negative); Protein Urine Negative (Negative); Specific Grav Ur 1.025 (1.001-1.035)
[2025-04-09 15:01] LABS: Bilirubin Urine Negative (Negative); Blood Urine Negative (Negative); Leukocyte Esterase Ur Negative LEU/UL (Negative); Nitrate Urine Negative (Negative); Urobilinogen Urine 0.2 mg/dL (<2.0)
[2025-04-09] MEDS: LACTATED RINGERS 1,000 ML 999 ML IV CONT (15:10)
[2025-04-09 15:20] LABS: Alanine Aminotransferase 50 U/L (6-50); Albumin Level 4.6 g/dL (3.5-5.1); Alkaline Phosphatase 59 U/L (38-126); Anion Gap 8 mmol/L (4-12); Aspartate Amino Transferase 42 U/L (17-59); Bilirubin,Total 0.5 mg/dL (0.2-1.3); Blood Urea Nitrogen 10 mg/dL (9-20); Calcium 9.2 mg/dL (8.4-10.2); Carbon Dioxide 26 mmol/L (22-30); Chloride 103 mmol/L (98-107); Estimated CRCL calculation 133 ml/min; Estimated Glomerular Filt Rate > 60; Glucose 119 mg/dL (65-110); Lipase 85 U/L (23-300); Sodium 137 mmol/L (137-145); Total Protein 7.9 g/dL (6.3-8.2)
[2025-04-09 15:30] LABS: Lactic Acid Reflex 0.9 mmol/L (0.7-2.0)
--- NOTE | 2025-04-09 16:47 | PC.NURSE ---
Pt. requesting Tylenol for his headache. States he does not want any medication for his 6/[address] Roldan notified.
[2025-04-09 16:54] VITALS: BP 147/82; PULSE 72; RESP 16; O2SAT 97
[2025-04-09] MEDS: PANTOPRAZOLE SODIUM IV 40 MG VIAL IV PUSH (17:01)
[2025-04-09] MEDS: ACETAMINOPHEN 500 MG TABLET 1000 MG PO (17:01)
[2025-04-09] MEDS: BELLADONNA ALK/PHENOB ELIX 10 ML, MAG HYDROX/ALUMINUM HYD/SIMETH 30 ML, LIDOCAINE 2% VI... PO (17:01)
[2025-04-09] MEDS: FAMOTIDINE 20 MG/2 ML VIAL IV PUSH (17:01)
== END 2025-04-09 18:48 | disposition home or self-care (01) ==
PROVIDERS: Emergency Provider Emergency Medicine; PCP Family Medicine
DX: K20.90 Esophagitis, unspecified without bleeding (principal); K29.70 Gastritis, unspecified, without bleeding; N28.9 Disorder of kidney and ureter, unspecified
CPT/HCPCS: 36415; 74177; 76705; 80053; 81003; 83605; 83690; 85025; 85610; 85730; 96361; 96374; 96375; 99284; A9270; J2470; J7120; Q9967

== ENCOUNTER 2025-07-26 00:45 | Day surgery (SDC) | payer BC, SELFPAY ==
--- OUTSIDE RECORDS SUMMARY | 2025-05-25 04:07 | XMS_ITS | Continuity of Care Document ---
Author Organization [facility] Address [address] [place] [address] Phone Care Team Providers Care Type Photography Supervisor Name Role Phone No Information Unavailable Unavailable Allergies, Adverse Reactions, Alerts Substance Reaction Status Criticality No Known Allergies Active No Inform ation Medications Medication Instructions Dosage Effective Dates (start - stop) Status Comments IBUPROFEN 800 MG TABLET TAKE 1 TABLET BY MOUTH THREE TIMES A DAY WITH FOOD - Active fluticasone propionate 50 mcg/actuation nasal spray,suspension INSTILL 1-2 SPRAYS PER NOSTRIL DAILY - Active cetirizine 10 mg tablet TAKE 1 TABLET BY MOUTH EVERY DAY AT NIGHT - Active Procedures Procedure Date Office/outpatient visit,est, mod 2024 Supplemental Report Supplemental Report Office/outpatient visit,est, mod 2024 Asp/inject major joint or bursa w/o US g uidance Celestone Betamethasone Sod Phos-Acetate Global/Postop followup visit Supplemental Report Global/Postop followup visit Supplemental Report Supplemental Report Global/Postop followup visit [facility] Global/Postop followup visit Supplemental Report BMI Documented Above Normal Limit F/U Pl an Doc X-ray exam shoulder complete, minimum 2 views Office/outpatient visit,[facility] 2024 Advance Directives Directive Yes / No Effective Date File Name No Information Encounters Encounter Description Practice Location Reason(s) For Visit Diagnoses Date Provider Providers Copied on Encounter [facility], [address] [address], [place], [place], [id number], [place] tel:[phone] No Information No Information Office/outpat ient visit,est, [facility], [address] [address], [place], [place], [id number], [place] tel:[phone] [facility] Right shoulder and bicep pain (chief complaint) Encounter for other orthopedic aftercare 5 Paige Fox. [address], [id number], [place]. tel:[phone] [facility], [address] [address], [place], [place], [id number], [place] tel:[phone] [facility] No Information 5 Paige Fox. [address] [address], [place], [place], [id number], [place]. tel:[phone] Office/outpat ient visit,est, [facility], [address] [address], [place], [place], [id number], [place] tel:[phone] [facility] Right shoulder and upper arm pain (chief complaint) Pain in right shoulder 5 Paige Fox. [address] [address], [place], [place], [address], [place]. tel:[phone] [facility], [address] [address], [place], [place], [id number], [place] tel:[phone] [facility] Right shoulder pain (chief complaint) Encounter for other orthopedic aftercare 5 Paige Fox. [address] [facility] [address], [place], [place], [address], [place]. tel:[phone] [facility], [address] [facility] [address], [place], [place], [id number], [place] tel:[phone] [facility] Right shoulder pain (chief complaint) Encounter for other orthopedic aftercare 5 Paige DO Shiv. [address] [facility], [place], [place], [address], [place]. tel:[phone] [facility], [address] [facility] [address], [place], [place], [id number], [place] tel:[phone] [facility] Right shoulder pain (chief complaint) Encounter for other orthopedic aftercare Jan- 5 Paige DO Shiv. [address] [facility], [place], [place], [address], [place]. tel:[phone] [facility], [address] [facility] [address], [place], [place], [id number], [place] tel:[phone] [facility] Pain in right shoulder 5 Paige DO Shiv. [address] [facility], [place], [place], [address], [place]. tel:[phone] [facility], [address] [facility] [address], [place], [place], [address], [place] tel:[phone] [facility] Soreness (chief complaint) Encounter for other orthopedic aftercare 5 Paige DO Shiv. [address] [facility], [address], [place], [place], [address], [place]. tel:[phone] [facility], [address] [facility] [address], [place], [place], [address], [place] tel:[phone] [facility] Pain in right shoulder 5 Paige DO Shiv. [address] [facility], [place], [place], [address], [place]. tel:[phone] Office/outpat ient visit,new, mod [facility], [address] [facility] [address], [place], [place], [address], [place] tel:[phone] [facility] Right shoulder pain and right bicep pain (chief complaint) Pain in right shoulder 5 Paige Fox. [address] [facility], [place], [place], [address], [place]. tel:[phone] [facility], [address] [facility] [address], [place], [place], [id number], [place] tel:[phone] [facility] No Information 5 Paige Fox. [address] [facility] [facility] [address], [place], [place], [address], [place]. tel:[phone] Family History Family Member Type Diagnosis Age At Onset Sister Problem (finding) Cancer, unknown Father Problem (finding) Heart Disease Payers Payer name Insurance type Covered green party ID Emre carrillo(s) [facility] [id number] Social History Type Description Quantity Date Captured Comments Sex Male Smoking Status No Information Gender Identity Male Chief Complaint And Reason For Visit No Information Reason For Referral Reason For Referral No Information Plan Of Treatment Date Type Action Status Referral Ordered: X-ray exam shoulder complete, minimum 2 views RT ordered History Of Present Illness Encounter Date Complaint History Of Prese nt Illness Right shoulder and bicep pain Right shoulder and upper arm carrington n [...]
[2025-07-15 08:41] VITALS: BMI 32.0
--- OUTSIDE RECORDS SUMMARY | 2025-07-26 00:48 | XMS_ITS | Clinical Summary ---
Author Organization [facility] Address [address] [place] [address] Care Team Providers Care Congressional Assistant Name Role Phone Oneil Romero MD Primary Care Provider [phone] Social History Tobacco Use Types Packs/Day Years Used Date Smoking Tobacco: Never Assessed Sex and Gender Information Value Date Recorded Sex Assigned at Male 02/17/2025 1:59 PM CDT Legal Sex Male 1:41 PM CDT Gender Identity Not on file Sexual Orientation Not on file Plan of Treatment Health Maintenance Due Date Last Done Comments Annual Physical 1987 Hepatitis C 2002 DTaP, Tdap and Td Vaccines ( 1 - Tdap) 2003 Hepatitis B Vaccines (1 of 3 - 19+ 3-dose series) 2003 HPV Vaccines (1 - 3-dose SCD M series) 2011 COVID-19 Vaccine ( - 2023-2 5 season) 2025 Meningococcal B Vaccine Aged Out No l onger eligible based on patient's age to complete this topic Meningococcal Vaccine Aged Out No felicity hannah eligible based on patient's age to complete this topic Pneumococcal Vaccine: Pediat rics (0 to 5 Years) and At-Risk Patients (6 to 49 Years) Aged Out No longer eligible b ased on patient's age to complete this topic RSV Immunizations Under 20 Months Aged Out No longer eligible based on patient's age to complete this topic Insurance [facility] Care Teams Congressional Assistant Relationship Specialty Start Date End Date Oneil Romero MD [address] [place] [address] PCP - General FAMILY PRACTICE 02/17/25
--- OUTSIDE RECORDS SUMMARY | 2025-07-26 00:48 | XMS_ITS | Clinical Summary ---
Author Organization [facility] Address [address] [place] [address] Care Team Providers Care General Production Manager Name Role Phone Unavailable Primary Care Provider Unavailabl e Source Comments [facility],non-owned Affiliates and Associated Physician Practices is amultiple site organization consisting of ambulatory clinics and hospital sitesin [place], [place], [place] and [place]. This disclosure is being madepursuant to the Care Everywhere program and may not contain all information available regarding this patient. Last updated 18.[facility] Allergies No known active allergies Medications * [...] 3 - 19+ 3-dose series) 2003 HPV VACCINE (1 - 3-dose SCDM series) 2011 DEPRESSION SCREENING 11/04/2024 COVID-19 VACCINE ( - 2023-2 5 season) 2025 INFLUENZA VACCINE (#1) 2025 09/07/2006 ZOSTER VACCINE (1 of 2) 2034 HIB [...] age to complete this topic Insurance [facility] Address: [facility] [id number] [place] [address]
[2025-07-26 07:44] VITALS: BP 147/81; PULSE 82; RESP 16; TEMP 36.3; O2SAT 98
[2025-07-26] MEDS: LACTATED RINGERS 1,000 ML 150 ML IV CONT (07:51)
--- NOTE | 2025-07-26 08:00 | P.PNAN_ITS ---
Anes - Initial Pre Proc Eval Procedure: Operation Date: 07/26/25 08:30 Proposed Procedures p Esophagogastroduodenoscopy - Jean Sun MD Date/Time: 07/26/25 08:00 Surgeon: Jean Sun MD Pre Op Diagnosis: Other psychoactive substance use, unspecified, unc Patient Data Age: 40 Gender: M Height: 1.85 m Weight: 114.1 kg Last Vital Signs Temp 36.3 C L 07/26/25 07:44 Pulse 82 07/26/25 07:44 Resp 16 07/26/25 07:44 BP 147/81 H 07/26/25 07:44 Pulse Ox 98 07/26/25 07:44 O2 Del Method Room Air 07/26/25 07:44 Allergies Allergy/AdvReac Type Severity Reaction Status Date / Time No Known Allergies Allergy Verified 07/26/25 07:43 Home Medications ?Medication ?Instructions ?Recorded ?Confirmed ?Type omeprazole 40 mg capsule,delayed 40 mg PO DAILY #30 ca ps 04/29/25 07/26/25 Rx release Patient hx anesthesia problems: none Family hx anesthesia problems: none Results Review: All pre-operative results and documents have been reviewed as part of the pre- operative evaluation. [facility] Social History Social History Smoking status: Never smoker Substance use type: marijuana Last use: daily MJ Living arrangements: with family Spiritual care concerns: No Anes - Eval Final PreProcedure Day of Procedure 07/26/25 08:00 Patient weight: obese Heart: regular rate and rhythm Lungs: clear to auscultation Airway: Mallampati scale class III Neurological: alert and oriented Last oral intake: >/= 8 hours ASA classification: II Emergent: no Anesthetic plan: proceed Anesthesia type and monitoring: general GIVS and standard monitoring Results Review: All pre-operative results and documents have been reviewed as part of the pre- operative evaluation. Informed Consent: The patient's anesthetic plan and its attendant risks and benefits were discusse d with the patient/family/POA. Questions were solicited and answers provided to the satisfaction of the patient/family/POA.
--- NOTE | 2025-07-26 08:13 | P.HP_ITS ---
History of Present Illness History of Present Illness Consent: Risks, benefits, and alternatives have been discussed and questions answered. Patient agrees to proceed with procedure. Chief complaint: Other psychoactive substance use, unspecified, unc Narrative: Noé Roy is a 40 year old male with upper abdominal pain 04/2025, CT showed possible esophagitis/gastritis, given ppi and now pain is gone, never had egd Review of Systems Review of Systems: All systems reviewed & are unremarkable except as noted in HPI and below PMFSH Social History Social History Smoking status: Never smoker Substance use type: marijuana Last use: daily MJ Living arrangements: with family Spiritual care concerns: No Meds Home Medications and Allergies Home Medications ?Medication ?Instructions ?Recorded ?Confirmed ?Type omeprazole 40 mg capsule,delayed 40 mg PO DAILY #30 ca ps 04/29/25 07/26/25 Rx release Allergies Allergy/AdvReac Type Severity Reaction Status Date / Time No Known Allergies Allergy Verified 07/26/25 07:43 Vital Signs Vital Signs - 24 hr 07/26/25 07:44 Temperature 97.3 F L Pulse Rate 82 Respiratory Rate 16 Blood Pressure 147/81 H Pulse Oximetry 98 Oxygen Delivery Room Air Exam Const: General: comfortable and no acute distress HENMT: Face/Nose/Sinus: Normal nares present Eyes: General: appearance normal, both eyes and all related structures Neck: Neck: no JVD Resp: Auscultation: clear to auscultation bilaterally Cardio: Rate: regular rate Rhythm: regular rhythm GI: Inspection: non-distended GI Palp: Yes Soft to palpation Skin: General skin exam: normal color Neuro: General: gait normal Speech: normal speech Extrem: General: normal to inspection Psych: Mental Status: mental status grossly normal Assessment and Plan Assessment and plan (1) RUQ pain: Code(s): R10.11 - Right upper quadrant pain Status: Acute Assessment and Plan: egd with bx pain is gone now
--- NOTE | 2025-07-26 08:20 | S_PTH ---
PATIENT: Noé Roy LOC: [facility]#:[id number] AGE/SX: 40/M ROOM: RE07/26/[address]: Jean Sun MD : 1985 BED: DIS: 07/26/2025 SPEC #: [id number] RECD: 07/26/25 10:18 STATUS: DINESH REQ #: [id number] PREMA: 07/26/25 08:[address]: Jean Sun DEPT: [facility] [place] Surgical RECD BY: Geneva Milian ENTERED: 07/26/25 10:18 SP TYPE: Surgical OTHR DR: Oneil Romero, Tissues: A - Gastric Biopsy Procedures: Hematoxylin and Eosin Stain Gross and Microscopic Level 4
[2025-07-26 08:23] VITALS: BP 132/75; PULSE 73; RESP 18; O2SAT 99
[2025-07-26 08:33] VITALS: BP 124/74; PULSE 75; RESP 19; O2SAT 97
[2025-07-26 08:43] VITALS: BP 117/49; PULSE 72; RESP 20; O2SAT 98
== END 2025-07-26 08:51 | disposition home or self-care (01) ==
PROVIDERS: PCP Family Medicine; Referring Provider Nurse Practitioner Family; Visit Provider Internal Medicine Gastroenterology
PROC: 0DJ08ZZ Inspection of Upper Intestinal Tract, Via Natural or Artificial Opening Endoscopic (ICD-10-PCS; CPT 43239; principal; 2025-07-26 08:30)
DX: R10.13 Epigastric pain (principal); F12.90 Cannabis use, unspecified, uncomplicated; E66.9 Obesity, unspecified; Z68.33 Body mass index [BMI] 33.0-33.9, adult
CPT/HCPCS: 43239; 88305; J2003; J2704; J7120